=== PATIENT | male | born 1990 | race Hispanic/Latino ===

== ENCOUNTER 2019-04-20 11:00 | Outpatient (CLI) | payer OTHER ==
--- NOTE | 2019-04-20 13:54 | ULT ---
RIGHT UPPER QUADRANT SONOGRAM: HISTORY: Right upper quadrant pain. FINDINGS: The gallbladder has a normal appearance without evidence of stones. The common duct is 0.4 cm. The li eusebia is unremarkable without focal mass or intrahepatic biliary dilatation. No free fluid. IMPRESSION: Normal right upper quadrant sonogram. POS: [facility]
== END 2019-04-20 11:01 | disposition home or self-care (01) ==
LOC: NAV ULT 11:00
PROVIDERS: ATTEND Nurse Practitioner Family
DX: R10.31 Right lower quadrant pain (principal); R06.02 Shortness of breath
CPT/HCPCS: 76705